=== PATIENT | female | born 1965 | race Caucasian/White ===

== ENCOUNTER 2019-11-21 11:25 | Outpatient (CLI) | payer BC, OTHER ==
[2019-11-21 14:43] LABS: #Basophils 0.1 thou/uL (0.0-0.2); #Eosinphils 0.2 thou/uL (0.0-0.7); #Lymphocytes 1.4 thou/uL (1.20-3.40); #Monocytes 0.4 thou/uL (0.11-0.59); #Neutrophils 4.4 thou/uL (1.40-6.50); %Basophils 1.2 % (0.0-1.0); %Eosinophils 3.4 % (0.0-10.0); %Lymphocytes 21.4 % (21.0-51.0); %Monocytes 5.9 % (0.0-10.0); %Neutrophils 68.1 % (42.0-75.0); Hemoglobin 10.8 g/dL (12.0-16.0); Mean Corpuscular HGB CONC 31.3 g/dL (32.0-36.0); Mean Corpuscular Hemoglobin 28.5 pg (27.0-31.0); Mean Corpuscular Volume 91.1 fL (78.0-98.0); Mean Platelet Volume 8.7 fL (7.4-10.4); Platelet Count 305 thou/uL (130-400); RBC Distribution Width 16.1 % (11.5-14.5); Red Blood Cell (RBC) Count 3.78 mill/uL (4.20-5.40); White Blood Cell (WBC) Count 6.4 thou/uL (4.8-10.8)
[2019-11-21 15:09] LABS: Anion Gap 14 mmol/L (10-20); BUN (Urea Nitrogen) 10 mg/dL (9.8-20.1); Calc. Creatinine Clearance 0 mL/min (70-130); Calcium 9.3 mg/dL (7.8-10.44); Carbon Dioxide 24 mmol/L (22-29); Chloride 103 mmol/L (98-107); Estimated GFR-MDRD 64; Glucose 131 mg/dL (70-105); Potassium 4.2 mmol/L (3.5-5.1); Sodium 137 mmol/L (136-145)
[2019-11-22 13:27] LABS: SARS-CoV-2 MS2 Positive; SARS-CoV-2 N Gene Negative; SARS-CoV-2 S Gene Negative; SARS-CoV-2 orf1ab Negative
== END 2019-11-21 11:26 | disposition home or self-care (01) ==
LOC: LABBT 11:25
PROVIDERS: ATTEND Urology
DX: Z01.812 Encounter for preprocedural laboratory examination (principal); Z11.59 Encounter for screening for other viral diseases; N20.0 Calculus of kidney
CPT/HCPCS: 80048; 85025; 87086; 87635; U0003

== ENCOUNTER 2019-11-23 07:21 | Day surgery (SDC) | payer BC ==
[2019-11-21 15:03] VITALS: BMI 24.0
[2019-11-23] MEDS ORDERED: Levofloxacin 500 mg/D5W 100 ml Premix Bag ONE (08:41)
[2019-11-23] MEDS ORDERED: Fentanyl 100 MCG/2 ML VIAL ONE ×2 (09:20→10:07)
[2019-11-23] MEDS ORDERED: Iothalamate Meglumine 60% 50 ML VIAL FS ONE (09:34)
--- NOTE | 2019-11-23 10:11 | RAD ---
EXAM: Retrograde IVP HISTORY: Right ureteral stent for hydronephrosis COMPARISON: None FINDINGS/IMPRESSION: Limited intraoperative fluoroscopic views of the retrograde IVP were submitted f or interpretation. There is mild to moderate hydronephrosis on the right. No obvious filling defects are seen. Eventually, a double-J ureteral stent is seen in good position.
--- NOTE | 2019-11-23 11:17 | OP ---
DATE OF PROCEDURE: 11/23/2019 PREOPERATIVE DIAGNOSIS: Right ureteral stone. POSTOPERATIVE DIAGNOSIS: Right hydronephrosis. PROCEDURES PERFORMED: Right ureteroscopy, retrograde pyelogram, 4.8 x 26 double-J ureteral stent placement. ANESTHESIA: General. COMPLICATIONS: None. ESTIMATED BLOOD LOSS: None. SPECIMEN: None. DESCRIPTION OF PROCEDURE: After informed consent, the patient was taken to the operating room, transferred to the table on her own power. Anesthesia was established. A time-out was performed, showing the correct patient, site, and procedure. Preoperative antibiotics were administered. She was prepped and draped in the lithotomy position. I began by inserting the semi-rigid ureteroscope through the urethra into her bladder. Bladder was systematically examined noting no mucosal abnormalities or stones. The right ureter was cannulated with a wire, which was passed up to the level of the renal pelvis under fluoroscopic guidance. The scope was withdrawn and reinserted alongside the wire into the distal ureter, where there was an area about 2 cm in, that appeared consistent with recent stone passage. The scope was passed all the way up to the UPJ noting no stones. A retrograde pyelogram was performed showing mild hydronephrosis with normal-appearing ureter. The scope was then withdrawn and a 4.8 x 26 double-J ureteral stent was placed over the wire with a curl in the kidney and curl in the bladder under fluoroscopic guidance. Strings were left attached for the patient to remove on Tuesday morning. She was then awoken from anesthesia, transferred back to her hospital bed, and taken to the PACU in stable condition, where she will be discharged home upon recovery. Job ID: [id number]
[2019-11-23] MEDS ORDERED: HYDROcodone/Acetaminophen 5/325 mg Tablet ONE (11:27)
[2019-11-23] MEDS ORDERED: Glycopyrrolate 0.2 MG/ML 5 ML SYRINGE ONE (11:36)
[2019-11-23] MEDS ORDERED: PROPOFOL 200 MG/20 ML VIAL ONE (11:36)
[2019-11-23] MEDS ORDERED: Ondansetron PF 4 MG/2 ML Vial ONE (11:36)
[2019-11-23] MEDS ORDERED: EPHEDRINE 25 MG/5 ML SYRINGE ONE (11:36)
[2019-11-23] MEDS ORDERED: Lidocaine 1% PF 5 ML VIAL ONE (11:36)
== END 2019-11-23 13:05 | disposition home or self-care (01) ==
LOC: SDC 07:21
PROVIDERS: ATTEND Urology
PROC: 0T768DZ Dilation of Right Ureter with Intraluminal Device, Via Natural or Artificial Opening Endoscopic (ICD-10-PCS; principal; 2019-11-23)
DX: N13.2 Hydronephrosis with renal and ureteral calculous obstruction (principal); Z79.899 Other long term (current) drug therapy
CPT/HCPCS: 74420; 93005; 93010; J1956; J2405; J2704; J3010